=== PATIENT | male | born 1975 | race Caucasian/White ===

== ENCOUNTER → 2017-10-16 | Outpatient (CLI) | payer OTHER ==
[~2017-10-16] MED LIST: ACET500; AMOX1XR PO; Albuterol17 G1 INH; CEPH250A PO; CYCL10 PO; DOXY100T53 PO; EPIN.3I IM; IBUP800 PO; NAPR500 PO; Norco 5-325 Ta1 EACH PO; OXYACE5T PO; PENVK500 PO; PRED10 PO; PRED20 PO; Prilosec Otc20 MG; RANI150 PO; RXCEPH500 PO; RXOXYACE PO; TRAM50 PO; TRIA80TC TOP; Ultram50 MG PO
== END ==
LOC: LAB 13:45 → LAB SHORT 13:45
DX: R10.9 Unspecified abdominal pain (principal); R19.7 Diarrhea, unspecified
CPT/HCPCS: 87338

== ENCOUNTER 2017-10-22 10:55 | Emergency (ER) | payer OTHER ==
[~2017-10-22] VITALS: Ht 172.7 cm; Wt 74.8 kg
[~2017-10-22 10:55] MED LIST changes: -CYCL10 PO; -IBUP800 PO; -Prilosec Otc20 MG; -Ultram50 MG PO
[2017-10-22] MEDS ORDERED: Prilosec Otc20 MG (11:01)
[2017-10-22] MEDS ORDERED: IBUP800 PO (11:46)
[2017-10-22] MEDS ORDERED: Ultram50 MG PO (11:46)
[2017-10-22] MEDS ORDERED: CYCL10 PO (11:46)
== END 2017-10-22 12:08 | disposition home or self-care (01) ==
LOC: ER 10:55
DX: M54.5 Low back pain (principal); Z91.010 Allergy to peanuts; Z79.899 Other long term (current) drug therapy; F17.210 Nicotine dependence, cigarettes, uncomplicated
CPT/HCPCS: 96372; 99283; J1885

== ENCOUNTER 2017-12-13 12:13 | Emergency (ER) | payer OTHER ==
[~2017-12-13] VITALS: Ht 172.7 cm; Wt 79.4 kg
[~2017-12-13 12:13] MED LIST changes: +CYCL10 PO; +IBUP800 PO; +Prilosec Otc20 MG; +Ultram50 MG PO
[2017-12-13] MEDS ORDERED: BENADRYL25 MG PO (12:52)
[2017-12-13] MEDS ORDERED: Pepcid20 MG PO (12:52)
== END 2017-12-13 13:05 | disposition home or self-care (01) ==
LOC: ER 12:13
DX: T78.1XXA Other adverse food reactions, not elsewhere classified, initial encounter (principal); F17.210 Nicotine dependence, cigarettes, uncomplicated; Z91.010 Allergy to peanuts; Z79.899 Other long term (current) drug therapy
CPT/HCPCS: 99283; J1100

== ENCOUNTER 2018-03-04 22:44 | Emergency (ER) | payer OTHER ==
[~2018-03-04] VITALS: Ht 172.7 cm; Wt 74.8 kg
[~2018-03-04 22:44] MED LIST changes: +BENADRYL25 MG PO; +Pepcid20 MG PO; -Prilosec Otc20 MG; +Prilosec Otc20 MG PO
[2018-03-05] MEDS ORDERED: IBUP600 PO (00:37)
[2018-03-05] MEDS ORDERED: Ultram50 MG PO (00:37)
[2018-03-05] MEDS ORDERED: CYCL10 PO (00:37)
== END 2018-03-05 00:50 | disposition home or self-care (01) ==
LOC: ER 22:44
DX: M54.41 Lumbago with sciatica, right side (principal); F17.210 Nicotine dependence, cigarettes, uncomplicated; Z91.010 Allergy to peanuts; Z79.899 Other long term (current) drug therapy
CPT/HCPCS: 96372; 99282; J1100; J1885

== ENCOUNTER 2025-02-03 | Emergency (ER) | payer OTHER ==
[~2025-02-03] VITALS: Ht 175.3 cm; Wt 79.4 kg
[~2025-02-03] MED LIST changes: +IBUP600 PO
[2025-02-03 00:10] VITALS: BP 165/104
[2025-02-03] MEDS ORDERED: CEPH500 PO (01:30)
== END 2025-02-03 01:16 | disposition home or self-care (01) ==
LOC: ER
DX: S60.456A Superficial foreign body of right little finger, initial encounter (principal); W45.8XXA Other foreign body or object entering through skin, initial encounter; Z91.010 Allergy to peanuts; Z88.8 Allergy status to other drugs, medicaments and biological substances
CPT/HCPCS: 73140; 90471; 90715; 99283-25